=== PATIENT | female | born 2000 | race Two or more races ===

== ENCOUNTER 2024-06-16 18:21 | Emergency (ER) | payer MEDICAID ==
[~2024-06-16] VITALS: Ht 172.7 cm; Wt 91.0 kg
[2024-06-16 18:34] VITALS: BP 124/84; PULSE 120
[2024-06-16 19:49] VITALS: RESP 20; O2SAT 100
[2024-06-16] MEDS: ALBUTEROL SULF 2.5 MG/0.5ML(0.5%) NEB SOLN NEB ONE (19:49)
[2024-06-16 20:28] LABS: Urine Amorphous Crystal FEW /hpf (None Seen); Urine Bacteria FEW /hpf (None Seen); Urine Blood Negative /uL (Negative); Urine Clarity Turbid (Clear); Urine Color Colorless (Yellow); Urine Protein, UAD Negative (Negative); Urine Specific Gravity 1.016 (1.001-1.035); Urine Urobilinogen Normal (Negative); Urine WBC 5 /hpf (0 - 5); Urine pH 6.5 (5.0-9.0)
== END 2024-06-16 22:00 | disposition left against medical advice (07) ==
LOC: ER 18:21
DX: O99.511 Diseases of the respiratory system complicating pregnancy, first trimester (principal); J45.909 Unspecified asthma, uncomplicated; E78.5 Hyperlipidemia, unspecified; Z3A.13 13 weeks gestation of pregnancy
CPT/HCPCS: 81001; 94640